=== PATIENT | female | born 1990 | race Caucasian/White ===

== ENCOUNTER 2022-03-15 00:14 | Emergency (ER) | payer BC, MEDICAID ==
[~2022-03-15] VITALS: Ht 160 cm; Wt 59.0 kg
[2022-03-15 00:27] VITALS: BP 112/57
== END 2022-03-15 01:02 | disposition left against medical advice (07) ==
LOC: ER 00:48
DX: R09.89 Other specified symptoms and signs involving the circulatory and respiratory systems (principal)
CPT/HCPCS: 99281